=== PATIENT | female | born 1990 | race Caucasian/White ===

== ENCOUNTER 2018-08-28 12:38 | Emergency (ER) | payer OTHER ==
[2018-08-28 12:44] VITALS: BP 108/60
--- NOTE | 2018-08-28 13:28 | EDPHY ---
H & P Time Seen by Provider: 08/28/18 13:27 HPI/ROS: CHIEF COMPLAINT: Dysuria and urinary frequency and chills HISTORY OF PRESENT ILLNESS: Patient is had multiple UTIs, thinks she has another 1 but today is worse. She started having dysuria and cloudy urine and urgency 2 days ago but then last night developed fever and chills associated with a headache today and temperature up to 102 degrees F. REVIEW OF SYSTEMS: No vomiting, no ENT symptoms, no diarrhea. No cough and not short of breath. States she has some anterior abdominal pain and bilateral lower back pain. PAST MEDICAL HISTORY: Recurrent UTI Social history: Here with her roommate General Appearance: Alert and conversant, cooperative. Mild CVA tenderness right greater than left. No rebound or guarding, no Skinner sign, no focal abdominal tenderness to palpation. Emergency Department course/MDM: Urinalysis reviewed; reviewed with the patient at 2:00 p.m.. Will treat with 10 days of oral Keflex because of possibility of pyelonephritis with subjective fevers and back pain. She appears stable to be treated as an outpatient, does not look septic or toxic. No vomiting. negative, UA shows 3+ leukocyte esterase with 50-182 WBC and 1+ bacteria. Culture sent. Smoking Status: Never smoked Constitutional: Initial Vital Signs Temperature (C) 37.4 C 08/28/18 12:40 Heart Rate 104 H 08/28/18 12:40 Respiratory Rate 16 08/28/18 12:40 Blood Pressure 108/60 08/28/18 12:40 O2 Sat (%) 96 08/28/18 12:40 O2 Delivery Mode Room Air Allergies/Adverse Reactions: all narcotics Allergy (Uncoded 08/28/18 12:45) Home Medications: Medication Instructions Recorded Cephalexin [Keflex] 500 mg PO QID #40 cap 08/28/18 MDM/Departure - Depart Disposition: Home, Routine, Self-Care Clinical Impression: Urinary tract infection Qualifiers: Urinary tract infection type: site unspecified Hematuria presence: without hematuria Qualified Code(s): N39.0 - Urinary tract infection, site not specified Condition: Good Instructions: Urinary Tract Infection in Women (ED) Prescriptions: Cephalexin [Keflex] 500 mg PO QID #40 cap Referrals: CHUCK MURPHY [Other] - As per Instructions
[2018-08-28] MEDS ORDERED: CEPHALEXIN 500 MG CAP PO ONE (14:02)
== END 2018-08-28 14:14 | disposition home or self-care (01) ==
DX: N39.0 Urinary tract infection, site not specified (principal)